=== PATIENT | female | born 1985 | race Caucasian/White ===

== ENCOUNTER 2023-10-27 06:48 | Emergency (ER) | payer BC ==
[~2023-10-27] VITALS: Ht 149.9 cm; Wt 88.5 kg
[2023-10-27 07:17] VITALS: BP_SYST 140; PULSE 75; RESP 16; TEMP 97.2; O2SAT 98
[2023-10-27] MEDS ORDERED: IBUP-1969 PO (07:26)
== END 2023-10-27 08:03 | disposition home or self-care (01) ==
LOC: SED 06:48
DX: U07.1 COVID-19 (principal); Z79.899 Other long term (current) drug therapy
CPT/HCPCS: 99282